=== PATIENT | female | born 1945 | race Caucasian/White ===

== ENCOUNTER 2020-01-30 10:29 | Outpatient (CLI) | payer MEDICARE, BC, SELFPAY ==
[2020-01-30 11:07] LABS: Basophils Percent Auto 0.5 % (0.2-1.2); Eosinophils Absolute Auto 0.1 K/mm3 (0-0.3); Eosinophils Percent Auto 1.4 % (0-4.4); Hematocrit 40.6 % (37.0-47.0); Hemoglobin 13.2 g/dL (12.0-15.0); Immature Granulocyte Absolute 0.02 K/mm3 (0.00-0.031); Immature Granulocyte Percent A 0.3 % (0-0.5); Lymphocytes Absolute Auto 1.02 K/mm3 (0.9-3.2); Mean Corpuscular HGB Conc 32.5 g/dl (32-36); Mean Corpuscular Hemoglobin 31.1 pg (26-34); Mean Corpuscular Volume 95.5 fl (80-100); Mean Platelet Volume 10.5 fl (7.4-10.4); Monocytes Absolute Auto 0.7 K/mm3 (0.1-0.6); Monocytes Percent Auto 9.2 % (2.6-8.5); Neutrophils Absolute Auto 5.9 K/mm3 (1.3-6.7); Neutrophils Percent Auto 75.6 % (45.5-73.1); Platelet Count Result 211 k/mm3 (150-375); Red Blood Count 4.25 M/mm3 (4.2-5.4); White Blood Count 7.8 K/mm3 (4.5-10.0)
[2020-01-30 11:28] LABS: Blood Urea Nitrogen 41 mg/dL (7-17); Carbon Dioxide 30 mmol/L (22-30); Chloride 95 mmol/L (98-107); Estimated Glomerular Filt Rate 40; Glucose 198 mg/dL (65-105); Potassium 4.5 mmol/L (3.4-5.0); Sodium 134 mmol/L (137-145)
[2020-01-30 11:33] LABS: NT Pro B Type Natriuretic Pept 63 PG/ML (5-100)
== END 2020-01-30 10:30 | disposition home or self-care (01) ==
PROVIDERS: PCP Family Medicine; Visit Provider Internal Medicine Cardiovascular Disease
DX: I25.118 Atherosclerotic heart disease of native coronary artery with other forms of angina pectoris (principal); I50.31 Acute diastolic (congestive) heart failure
CPT/HCPCS: 36415; 80048; 83880; 85025

== ENCOUNTER 2020-02-22 07:55 | Outpatient (CLI) | payer MEDICARE, BC, SELFPAY ==
[2020-02-22 08:46] LABS: Blood Urea Nitrogen 30 mg/dL (7-17); Calcium 8.6 mg/dL (8.4-10.2); Carbon Dioxide 37 mmol/L (22-30); Chloride 96 mmol/L (98-107); Estimated Glomerular Filt Rate 49; Glucose 134 mg/dL (65-105); Potassium 4.2 mmol/L (3.4-5.0); Sodium 137 mmol/L (137-145)
== END 2020-02-22 07:56 | disposition home or self-care (01) ==
LOC: ANHLAB 07:59
PROVIDERS: PCP Family Medicine; Visit Provider Nurse Practitioner Adult Health
DX: I50.32 Chronic diastolic (congestive) heart failure (principal)
CPT/HCPCS: 36415; 80048; 83735

== ENCOUNTER 2020-02-29 13:25 | Emergency (ER) | payer MEDICARE, BC, SELFPAY ==
[2020-02-29] VITALS (20 sets, daily range): BP systolic 115–169; BP diastolic 57–74; PULSE 58–70; RESP 15–27; TEMP 36.2; O2SAT 87–100
--- NOTE | ~2020-02-29 | XR_ITS ---
EXAMINATION: XR chest 1V portable EXAM DATE: 02/29/2020 14:01 INDICATION: Shortness of breath. TECHNIQUE: Portable AP frontal chest x-ray was obtained. Comparison is made to prior examination from 08/09/2019. FINDINGS: There is indistinct reticulation with a bibasal predominance which may indicate pulmonary e philip. The cardiomediastinal silhouette is prominent but magnified on this AP technique. Cardiac silho uette is stable in size compared to prior exam. Mild hyperinflation. No confluent consolidation, pneu mothorax or pleural effusion suspected. There is aortic arteriosclerosis. There are mild bony degener ative changes. IMPRESSION: 1. Indistinct basilar reticulation, possible mild pulmonary edema. Reviewed, dictated and finalized at location B.
--- NOTE | 2020-02-29 13:52 | ECG_ITS ---
Measurements Intervals [place] Rate: 61 P: 50 LA: 143 QRS: 9 QRSD: 94 T: 25 QT: 400 QTc: 404 Interpretive Statements SINUS RHYTHM BASELINE ARTIFACT- I, II, III, V5 NORMAL ECG Electronically Signed On 02-29-2020 15:45:05 CDT by Jaylan Becker D.O.
--- NOTE | 2020-02-29 14:03 | PC.NURSE ---
Called lab to add on PT INR PTT, CMP, Trop I baseline, BNP, CBC.
[2020-02-29 14:08] LABS: Basophils Percent Auto 0.4 % (0.2-1.2); Eosinophils Absolute Auto 0.2 K/mm3 (0-0.3); Eosinophils Percent Auto 3.5 % (0-4.4); Hematocrit 36.4 % (37.0-47.0); Hemoglobin 11.6 g/dL (12.0-15.0); Immature Granulocyte Absolute 0.03 K/mm3 (0.00-0.031); Immature Granulocyte Percent A 0.4 % (0-0.5); Lymphocytes Percent Auto 16.2 % (18.3-44.2); Mean Corpuscular HGB Conc 31.9 g/dl (32-36); Mean Corpuscular Hemoglobin 31.4 pg (26-34); Mean Corpuscular Volume 98.4 fl (80-100); Mean Platelet Volume 10.2 fl (7.4-10.4); Monocytes Absolute Auto 0.8 K/mm3 (0.1-0.6); Monocytes Percent Auto 11.2 % (2.6-8.5); Neutrophils Absolute Auto 4.7 K/mm3 (1.3-6.7); Neutrophils Percent Auto 68.3 % (45.5-73.1); Platelet Count Result 203 k/mm3 (150-375); Red Cell Distribution Width 14.1 % (11.5-14.5); White Blood Count 6.8 K/mm3 (4.5-10.0)
--- NOTE | 2020-02-29 14:16 | ED.SOB ---
HPI - SOB/Dyspnea General Chief Complaint: Shortness of Breath/Dyspnea Stated Complaint: low pulse oximetry Time Seen by Provider: 02/29/20 13:45 Source: patient and old records reviewed Mode of arrival: ambulatory Limitations: no limitations History of Present Illness HPI Narrative: Patient is a 74-year-old female who presents for shortness of breath with exertion over the last 3 days patient referred to emergency department for evaluation patient has history of COPD congestive heart failure normally wears 4 L of oxygen nasal cannula. Patient with history of swelling to the lower legs is taking Lasix for this per cardiology. Patient notes productive cough of clear phlegm which she states is a chronic finding denies any acute URI symptoms or sick contacts denies any chest pain. Patient presents per private vehicle in no distress. Symptoms worse with exertion Related Data Home Medications Medication Instructions Recorded Confirmed Aspirin Childrens 08/09/19 Ventolin HFA 08/09/19 Xarelto 08/09/19 amlodipine 5 mg PO DAILY 08/09/19 amlodipine 10 mg PO DAILY 08/09/19 apixaban [Eliquis] 5 mg PO BID 08/09/19 btgwsrnkari-egbrpoeyt-hyehhmwm 1 inh INHALATION Q24H 08/09/19 [Trelegy Ellipta] furosemide 40 mg PO BID 08/09/19 losartan 25 mg PO DAILY 08/09/19 losartan 50 mg PO DAILY 08/09/19 metoprolol tartrate 25 mg PO DAILY 08/09/19 nitroglycerin 0.4 mg SUBLINGUAL Q5-15M PRN 08/09/19 pantoprazole 40 mg PO QAM 08/09/19 potassium chloride 10 meq PO BID 08/09/19 potassium chloride [Klor-Con] 20 meq PO DAILY 08/09/19 pravastatin 40 mg PO DAILY 08/09/19 ropinirole 1 mg PO TID 08/09/19 tramadol mg 08/09/19 valacyclovir 1,000 mg PO DAILY 08/09/19 vortioxetine [Trintellix] 20 mg PO DAILY 08/09/19 zolpidem 5 mg PO HS PRN 08/09/19 Allergies Allergy/AdvReac Type Severity Reaction Status Date / Time No Known Allergies Allergy Verified 08/09/19 14:45 Review of Systems Review of Systems: All systems reviewed & are unremarkable except as noted in HPI and below PMFSH Past Medical History Medical History Afib Anxiety Arthritis CAD (coronary artery disease) COPD (chronic obstructive pulmonary disease) Depression Emphysema of lung HLD (hyperlipidemia) HTN (hypertension) Peripheral neuropathy Surgical History Surgical History H/O heart artery stent H/O skin graft H/O tubal ligation History of cardiac catheterization Social History Social History Smoking status: Former smoker Exam Narrative: Exam Narrative: GENERAL: Well-appearing, well-nourished, and in no acute distress. HEAD: Normocephalic, atraumatic. EYES: PERRLA and EOMI. ENT: Nares clear, no rhinorrhea or epistaxis. Mucous membranes moist. Oropharynx without tonsillar hypertrophy exudate or other lesions. NECK: Supple. No adenopathy or masses. No carotid bruits or JVD CHEST: Diminished on auscultation. No respiratory distress. Fine expiratory wheezes with crackles in the bilateral lower lung bases HEART: Regular rate and rhythm. No murmur heard. Normal peripheral pulses. ABDOMEN: Soft, nontender, nondistended EXTREMITIES: Normal range of motion. 1+ edema to the lower extremities SKIN: Warm, dry, no rash. NEURO: No focal deficits. Alert and oriented x3. PSYCH: Normal mood and affect. Course Course Emergency Course: Patient in the room at this time in no distress aware of case findings treatment plan and diagnosis felt appropriate for outpatient reevaluation Vital Signs Vital signs: Vital Signs Temperature 97.2 F L 02/29/20 13:33 Pulse Rate 62 02/29/20 13:33 Respiratory Rate 20 02/29/20 13:33 Blood Pressure 169/74 H 02/29/20 13:33 Pulse Oximetry 88 L 02/29/20 13:33 Temperature 97.2 F L 02/29/20 13:33 Pulse Rate 60 02/29/20 14:31 Respiratory R
[2020-02-29 14:20] LABS: INR 1.1; Prothrombin Time 14.2 Seconds (11.1-14.7)
[2020-02-29 14:21] LABS: Alanine Aminotransferase 21 U/L (4-35); Albumin Level 4.2 g/dL (3.5-5.1); Alkaline Phosphatase 75 U/L (38-126); Aspartate Amino Transferase 26 U/L (14-36); Bilirubin,Total 0.3 mg/dL (0.2-1.3); Blood Urea Nitrogen 38 mg/dL (7-17); Calcium 8.8 mg/dL (8.4-10.2); Carbon Dioxide 35 mmol/L (22-30); Chloride 97 mmol/L (98-107); Estimated CRCL calculation 40 ml/min; Estimated Glomerular Filt Rate 40; Glucose 117 mg/dL (65-105); Partial Thromboplastin Time 33.2 SECONDS (22.3-36.8); Potassium 4.6 mmol/L (3.4-5.0); Sodium 136 mmol/L (137-145)
[2020-02-29] MEDS: IPRATROPIUM BR 0.02% INH SOLN 0.5 MG/2.5 ML VIAL INHALATION (14:26)
[2020-02-29] MEDS: ALBUTEROL SULFATE NEB 2.5 MG/0.5 ML INH 5 MG INHALATION (14:27)
[2020-02-29] MEDS: methylPREDNISolone SOD SUCC 125 MG VIAL IV PUSH (14:27)
--- NOTE | 2020-02-29 14:29 | PC.NURSE ---
Attempted to obtain blood culture 1st set but was unsuccessful. Called phlebotomy at this time to attempt.
[2020-02-29 14:33] LABS: Alveolar/Arterial O2 Gradient 85.5 mmHg; Base Excess ABG 4.6 mEq/l (+/-2.0); Carboxyhemoglobin 0.7 % THb (0-2.0); Fractional Inspired Oxygen 36 %; HCO3 ABG 30.6 mEq/l (22.0-26.0); Methemoglobin ABG 0.3 %THb (0-1.5); Oxygen Content ABG 16.5 %vol (16.0-22.0); PCO2 ABG 51.6 mmHg (35.0-45.0); PO2 ABG 111.3 mmHg (80.0-100.0); PO2 FiO2 Ratio Arterial Blood 3.09 %; Total Hemoglobin 12.1 g/dL (12.0-18.0); pH ABG 7.391 (7.350-7.450)
[2020-02-29 14:33] LABS: NT Pro B Type Natriuretic Pept 144 PG/ML (5-100); Troponin I < 0.012 ng/mL (0.000-0.034)
[2020-02-29 14:34] LABS: Device NASAL CANNULA; Modified Allen's Test Pass; Site Drawn RIGHT RADIAL
--- NOTE | 2020-02-29 14:46 | PC.NURSE ---
Called lab to add on d dimer.
[2020-02-29 15:02] LABS: D Dimer 0.32 ug/mL (<0.48)
== END 2020-02-29 16:49 | disposition home or self-care (01) ==
PROVIDERS: Emergency Medicine Emergency Medical Services; Emergency Provider Emergency Medicine; PCP Family Medicine
DX: J44.1 Chronic obstructive pulmonary disease with (acute) exacerbation (principal); I48.91 Unspecified atrial fibrillation; F41.9 Anxiety disorder, unspecified; I25.10 Atherosclerotic heart disease of native coronary artery without angina pectoris; F32.9 Major depressive disorder, single episode, unspecified; E78.5 Hyperlipidemia, unspecified; I10 Essential (primary) hypertension; G62.9 Polyneuropathy, unspecified; Z95.5 Presence of coronary angioplasty implant and graft; Z87.891 Personal history of nicotine dependence; Z79.01 Long term (current) use of anticoagulants; Z79.82 Long term (current) use of aspirin; R91.8 Other nonspecific abnormal finding of lung field
CPT/HCPCS: 36415; 36600; 71045; 80053; 82375; 82805; 83050; 83880; 84484; 85025; 85380; 85610; 85730; 87040; 93005; 94640; 96374; 99284; J2930

== ENCOUNTER 2020-04-19 12:34 | Inpatient (IN) | payer MEDICARE, BC, SELFPAY ==
[2020-04-19] VITALS (11 sets, daily range): BP systolic 100–158; BP diastolic 54–74; PULSE 57–73; RESP 18–22; TEMP 36.3–36.6; O2SAT 70–97; BMI 44.2
--- NOTE | ~2020-04-19 | US_ITS ---
EXAMINATION: US venous doppler [facility] DATE: 04/20/2020 10:24 INDICATION: Lower limb edema. TECHNIQUE: Grayscale ultrasound images without and with compression and Doppler ultrasound images of the bilateral lower extremity veins were obtained. COMPARISON: None. FINDINGS: The visualized portions of right common femoral vein, profunda (deep) femoral vein, femoral vein, pop liteal vein, peroneal veins, posterior tibial veins, and greater saphenous vein outflow are patent. The visualized portions of left common femoral vein, profunda femoral vein, femoral vein, popliteal v ein, peroneal veins, posterior tibial veins, and greater saphenous vein outflow are patent. IMPRESSION: 1. No deep venous thrombosis. Reviewed, dictated and finalized at location A.
--- NOTE | ~2020-04-19 | XR_ITS ---
EXAMINATION: XR chest 1V portable DATE: 04/19/2020 13:28 INDICATION: Shortness of breath. TECHNIQUE: A single frontal view of the chest was obtained. COMPARISON: Chest single view 02/29/2020, CT abdomen and pelvis 10/09/2017 FINDINGS: The chest demonstrates clear lungs without pneumonia, pleural effusion, or pneumothorax. Th e heart size is normal. IMPRESSION: 1. No acute cardiopulmonary disease. Reviewed, dictated and finalized at location B.
--- NOTE | 2020-04-19 13:01 | ECG_ITS ---
Measurements Intervals [place] Rate: 57 P: 29 [place]: 146 QRS: 3 QRSD: 92 T: 5 QT: 447 QTc: 436 Interpretive Statements SINUS BRADYCARDIA BORDERLINE T WAVE ABNORMALITY- INFERIOR LEADS BASELINE ARTIFACT- I, II, III, AVR, AVL, AVF, V4 BORDERLINE ECG Electronically Signed On 04-19-2020 14:27:18 CDT by Jaylan Becker D.O.
[2020-04-19 13:31] LABS: Basophils Percent Auto 0.5 % (0.2-1.2); Eosinophils Absolute Auto 0.3 K/mm3 (0-0.3); Eosinophils Percent Auto 3.7 % (0-4.4); Hematocrit 30.4 % (37.0-47.0); Hemoglobin 9.5 g/dL (12.0-15.0); Immature Granulocyte Absolute 0.02 K/mm3 (0.00-0.031); Immature Granulocyte Percent A 0.3 % (0-0.5); Lymphocytes Absolute Auto 1.11 K/mm3 (0.9-3.2); Lymphocytes Percent Auto 14.7 % (18.3-44.2); Mean Corpuscular HGB Conc 31.3 g/dl (32-36); Mean Corpuscular Hemoglobin 29.6 pg (26-34); Mean Corpuscular Volume 94.7 fl (80-100); Monocytes Absolute Auto 0.9 K/mm3 (0.1-0.6); Monocytes Percent Auto 11.5 % (2.6-8.5); Neutrophils Absolute Auto 5.2 K/mm3 (1.3-6.7); Neutrophils Percent Auto 69.3 % (45.5-73.1); Platelet Count Result 215 k/mm3 (150-375); Red Blood Count 3.21 M/mm3 (4.2-5.4); Red Cell Distribution Width 14.5 % (11.5-14.5); White Blood Count 7.6 K/mm3 (4.5-10.0)
[2020-04-19 13:41] LABS: INR 1.3; Prothrombin Time 15.8 Seconds (11.1-14.7)
[2020-04-19 13:42] LABS: Partial Thromboplastin Time 32.6 SECONDS (22.3-36.8)
[2020-04-19 13:45] LABS: Anion Gap 7 mmol/L (8-16); Blood Urea Nitrogen 26 mg/dL (7-17); Calcium 8.9 mg/dL (8.4-10.2); Carbon Dioxide 32 mmol/L (22-30); Chloride 96 mmol/L (98-107); Estimated CRCL calculation 41 ml/min; Estimated Glomerular Filt Rate 37; Glucose 129 mg/dL (65-105); Potassium 3.8 mmol/L (3.4-5.0); Sodium 135 mmol/L (137-145)
[2020-04-19 13:57] LABS: NT Pro B Type Natriuretic Pept 286 PG/ML (5-100); Troponin I < 0.012 ng/mL (0.000-0.034)
--- NOTE | 2020-04-19 14:24 | ED.SOB ---
HPI - SOB/Dyspnea General Chief Complaint: Shortness of Breath/Dyspnea Stated Complaint: SOB, COVID Symptoms Time Seen by Provider: 04/19/20 12:43 History of Present Illness HPI Narrative: Patient is a 74-year-old female who presents to the ER with shortness of breath and cough. Patient is oxygen dependent COPD or who typically wears 3 L nasal cannula. She has had to turn her oxygen up to 5 L to obtain a normal saturation not in the 80s. She reports new productive cough for the last 2 days. No known sick contacts and thinks she is having a flare of her COPD. No chest pain or chest pressure. She denies any fevers or chills. No COVID exposures. Patient reports increased lower extremity swelling over the last 4 days. Takes 160 mg of Lasix daily and it is not improving it. No orthopnea. Sleeps with her CPAP. Related Data Home Medications Medication Instructions Recorded Confirmed Xarelto 15 mg PO QPM 08/09/19 04/19/20 amlodipine 5 mg PO DAILY 08/09/19 04/19/20 furosemide 80 mg PO BID 08/09/19 04/19/20 losartan 50 mg PO DAILY 08/09/19 04/19/20 metoprolol tartrate 50 mg PO QAM 08/09/19 04/19/20 nitroglycerin 0.4 mg SUBLINGUAL Q5-15M PRN 08/09/19 04/19/20 pantoprazole 40 mg PO QAM 08/09/19 04/19/20 potassium chloride 20 meq PO BID 08/09/19 04/19/20 pravastatin 40 mg PO DAILY 08/09/19 04/19/20 ropinirole 0.5 mg PO BID 08/09/19 04/19/20 tramadol 50 mg PO Q6H PRN 08/09/19 04/19/20 vortioxetine [Trintellix] 10 mg PO DAILY 08/09/19 04/19/20 albuterol sulfate 2 puff INHALATION Q6H PRN 04/19/20 04/19/20 aspirin 81 mg PO DAILY 04/19/20 04/19/20 qfkbflwossx-gxfyisacd-wrwvqcin 1 inh INHALATION DAILY 04/19/20 04/19/20 [Trelegy Ellipta] guaifenesin 600 mg PO Q12H 04/19/20 04/19/20 magnesium oxide 800 mg PO DAILY 04/19/20 04/19/20 metoprolol tartrate 75 mg PO QPM 04/19/20 04/19/20 Allergies Allergy/AdvReac Type Severity Reaction Status Date / Time No Known Allergies Allergy Verified 08/09/19 14:45 Review of Systems Review of Systems: All systems reviewed & are unremarkable except as noted in HPI and below Constitutional: Constitutional: Denies chills, Denies fever(s) and Denies weakness ENT: Denies nasal congestion and Denies sore throat Cardiovascular: Cardiovascular: Denies chest pain and Denies rapid heart rate Respiratory: Respiratory: Reports cough, Reports dyspnea and Reports wheezing Gastrointestinal: Gastrointestinal: Denies abdominal pain, Denies nausea and Denies vomiting PMF Past Medical History Medical History (Updated 04/19/20 @ 23:20 by Richie Sanders MD) Afib controlled with beta-mack Anxiety Arthritis CAD (coronary artery disease) One cardiac stent to the RCA COPD (chronic obstructive pulmonary disease) Depression Emphysema of lung HLD (hyperlipidemia) HTN (hypertension) Obstructive sleep apnea missed using her CPAP the last couple days due to nasal stuffiness Peripheral neuropathy Restless leg syndrome Surgical History Surgical History (Updated 04/19/20 @ 20:55 by Carmen Boss NP) H/O heart artery stent 1 stent to the RCA Two thousand eleven H/O skin graft right elbow and right buttocks and 2008. Donor site right thigh. H/O tubal ligation History of cardiac catheterization Family History Family History (Updated 04/19/20 @ 20:56 by Carmen Boss NP) Mother Cerebrovascular accident Hypertension Sibling Cerebrovascular accident Acute myocardial infarction Suicide brother Daughter Diabetes mellitus Father Diabetes mellitus Heart disease Social History Social History (Updated 04/19/20 @ 21:02 by Carmen Boss NP) Social History: the patient is and she uses smoke she quit February 2015 occasionally drinks wine. She has 3 children. 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 Her daughter Odalys villavicencio is her durable power collar shaper operator for healthcare. The patient stated she i
[2020-04-19] MEDS: IPRATROPIUM BR 0.02% INH SOLN 0.5 MG/2.5 ML VIAL INHALATION (14:26)
[2020-04-19] MEDS: ALBUTEROL SULFATE NEB 2.5 MG/0.5 ML INH 5 MG INHALATION (14:26)
[2020-04-19 14:35] LABS: Alveolar/Arterial O2 Gradient 128.4 mmHg; Base Excess ABG 6.5 mEq/l (+/-2.0); Carboxyhemoglobin 0.4 % THb (0-2.0); Fractional Inspired Oxygen 36 %; HCO3 ABG 31.1 mEq/l (22.0-26.0); Methemoglobin ABG 0.1 %THb (0-1.5); Oxygen Content ABG 13.2 %vol (16.0-22.0); Oxygen Saturation ABG 95.8 % (95.0-100.0); PCO2 ABG 44.7 mmHg (35.0-45.0); PO2 ABG 76.4 mmHg (80.0-100.0); PO2 FiO2 Ratio Arterial Blood 2.12 %; Reduced Hemoglobin 5.5 %THb (0-5.0); Total Hemoglobin 9.9 g/dL (12.0-18.0)
[2020-04-19 14:38] LABS: Device NASAL CANNULA; Modified Allen's Test Pass; Site Drawn LEFT RADIAL
[2020-04-19] MEDS: methylPREDNISolone SOD SUCC 125 MG VIAL IV PUSH (15:09)
--- NOTE | 2020-04-19 16:49 | ADMGEN ---
This patient, Bebe Lyons, was admitted to 2 Medical Room 254-01. Patient/family oriented to hospital policies and general routines including ID bracelet, bed and alarms, visiting hours, pain management, procedures, bathroom and other care routines, personal items, smoking policy, room service/diet, and visiting hours. Valuables list has been completed. Information on how to activate the Rapid Response Team has been discussed. Patient/Family are encouraged to report perceived risks to care and to ask questions if they do not understand what they are told or what they should do.
--- NOTE | 2020-04-19 20:45 | PM.IMHP ---
H&P: HPI History of Present Illness Date/Time: 04/19/20 20:45 Chief complaint: COPD exacerbation Narrative: Bebe Lyons is a 74 year old female Who has a history of COPD and chronic hypoxia. She sees Iris Garg nurse practitioner at the electrical engineering technologist office. The patient is chronically on 4 L per nasal cannula at home. The patient has been falling asleep often and she has been on isolation. She stated since August she has been staying at home. Her daughter and granddaughter live with her. Her granddaughter has been going to graduation parties but does not have any symptoms of covid 19. Her granddaughter brought brought her some groceries 1 night but other than that she has not had any exposure to any by it could possibly have COVID. Her daughter is a nurse but has not tested positive for COVID. Chest x-ray was read as nothing acute. I reviewed her last 3 chest x-rays they all appear to be the same. The patient denies having any congestive heart failure and has chronic lymphedema. Her legs are at least 3 to 4+ pitting edema. The patient has been more short of breath. She has been to the emergency room here a couple times and was started on Levaquin and p.o. steroids. The patient recently was increased on her oxygen from 3 L to 4 L. the patient has been having a cough it was yellow in now green. She denies any fever or chills. No nausea vomiting or diarrhea. No change in taste or smell. At this time we did not check her for COVID as she has no fever or any indications of covid 19 at this time. However the patient does desat to the 60s when she gets up and walks. At this time she stabbing in the 90s. Her arterial blood gases pH 7.460. PO2 was 76.4. Bicarb 31.1. The patient was started on steroids in the emergency room and given a neb treatment. Patient is on high doses of Lasix and sees Dr. Martinez and had an echo back in August she stated. She denies having any congestive heart failure but is on high doses of Lasix. She has a history of atrial fibrillation but is controlled with a beta-mack. She has been in sinus rhythm with sinus bradycardia. I have spent at least 1 hour with the patient. Her creatinine is 1.4 has been 1.1 and 1.3 in the past. I have discussed the case with my collaborative who agree that we would get a few more labs and not test her for COVID at this time If labscomes back negative. She is afebrile. the patient stated that he typically Mucinex helps her but she has not been taking it because she is getting ready to have a pulmonary function test.Her date of service is 04/19/2020. Review of Systems Review of Systems: All systems reviewed & are unremarkable except as noted in HPI and below Constitutional: Constitutional: Reports as per HPI and Reports no additional constitutional complaints Eyes: Eyes: Reports as per HPI and Reports no additional eye complaints ENT: Reports system reviewed and no additional complaints, except as documented and Reports Normal hearing present Cardiovascular: Cardiovascular: Reports no additional cardiovascular complaints Respiratory: Respiratory: Reports no additional respiratory complaints and Reports no additional respiratory complaints Gastrointestinal: Gastrointestinal: Reports as per HPI and Reports no additional gastrointestinal complaints Musculoskeletal: Musculoskeletal: Reports no additional musculoskeletal complaints Integumentary/Breasts: Skin/Breast: Reports system reviewed and no additional complaints, except as docu and Reports as per HPI Neurologic: Reports system reviewed and no additional complaints, except as documented, Reports as per HPI and Reports Normal hearing present Psychiatric: Psychiatric: Reports no additional psychiatric complaints and Reports as per HPI Endocrine: Endocrine: Reports no additional endocrine complaints Hematologic/Lymphatic: Hematologic/Lymphatic: Reports no additional hematologic/lymphatic complaints Allerg
[2020-04-19] MEDS: methylPREDNISolone SOD SUCC 125 MG VIAL 60 MG IV PUSH (20:51)
[2020-04-19 21:49] LABS: Albumin Level 4.1 g/dL (3.5-5.1); Alkaline Phosphatase 81 U/L (38-126); Anion Gap 12 mmol/L (8-16); Aspartate Amino Transferase 28 U/L (14-36); Bilirubin,Total 0.2 mg/dL (0.2-1.3); Blood Urea Nitrogen 24 mg/dL (7-17); CRP 0.6 mg/dL (<1.0); Calcium 8.7 mg/dL (8.4-10.2); Carbon Dioxide 27 mmol/L (22-30); Chloride 96 mmol/L (98-107); Estimated CRCL calculation 48 ml/min; Estimated Glomerular Filt Rate 49; Glucose 311 mg/dL (65-105); Potassium 4.1 mmol/L (3.4-5.0); Sodium 135 mmol/L (137-145)
[2020-04-19 21:55] LABS: Alanine Aminotransferase 23 U/L (4-35)
[2020-04-19] MEDS: levoFLOXacin 250 MG/D5W 50 ML 250 MG/50 ML BAG 50 MG IVPB (21:57)
[2020-04-19] MEDS: rOPINIRole HCL 0.5 MG TABLET PO ×2 (21:58→23:48)
[2020-04-19] MEDS: traMADol HCL 50 MG TABLET PO (21:58)
[2020-04-19] MEDS: guaiFENesin 12 HR 600 MG TABCR PO (21:58)
[2020-04-19 22:51] LABS: Ferritin 8.64 ng/mL (11.1-264)
[2020-04-20] VITALS (12 sets, daily range): BP systolic 136–155; BP diastolic 61–70; PULSE 65–79; RESP 18–28; TEMP 36.1–36.4; O2SAT 89–94
--- NOTE | 2020-04-20 | ECHO_ITS ---
Patient Info Name: Bebe Lyons Age: 74 years : 1945 Gender: Female Ht: 62 in Wt: 242 lbs BSA: 2.26 m2 HR: 78 bpm BP: 138 / 68 mmHg Heart Rhythm: Sinus Rhythm Technical Quality: Good Exam Date: 04/20/2020 9:21 AM Exam Location: [facility] Pulmonary Exam Room: [address] [place] [address] Patient Status: Inpatient Admit Date: 04/19/2020 Staff Ordering Physician: Carmen Boss NP Bolt Cutter: Nanci Lopez RDCS Attending Provider: Jacqueline Gonzalez PA-C Referring Physician: Karyn DUQUE; Exam Type: CA echo doppler color flow Study Info Indications - AMINA SOB COUGH COPD Complete two-dimensional, color flow and Doppler transthoracic echocardiogram is performed. Summary 1. There is moderate concentric increased left ventricular wall thickness. 2. Left ventricular systolic function is hyperdynamic, estimated at >70%. 3. Left atrial chamber dimension is mildly enlarged. 4. No valvular abnormalities. Left Ventricle Left ventricular chamber dimension is normal. Left ventricular systolic function is hyperdynamic, estimated at >70%. There is moderate concentric increased left ventricular wall thickness. The left ventricular diastolic function is grade I diastolic dysfunction. Right Ventricle Right ventricular chamber dimension is normal. Left Atria Left atrial chamber dimension is mildly enlarged. Right Atria Right atrial chamber dimension is normal. Aortic Valve The aortic valve is normal. Pulmonic Valve The pulmonic valve is not well visualized. Mitral Valve The mitral valve has normal leaflets. Tricuspid Valve The tricuspid valve leaflets are normal. Pericardium/Pleural The pericardium appears normal. Aorta The aortic root size at the sinus of Valsalva is normal. Left Ventricular Outflow Tract Name Value Normal LVOT 2D LVOT Diameter 2.0 cm LVOT Doppler LVOT Peak Gradient 11 mmHg LVOT Mean Gradient 6 mmHg LVOT VTI 35 cm LVOT VTI/AV VTI Ratio 0.8 LVOT Stroke Volume 106 ml LVOT CO 20.2 l/min LVOT CI 8.9 l/min/m2 Pulmonic Valve Name Value Normal PV Doppler PV Peak Gradient 7 mmHg Mitral Valve Name Value Normal MV Doppler MV Decel [place] 544 cm/s2 MV PHT 64 ms MV Area (PHT) 3.4 cm2 4.0-5.0 MV Diastolic Function
[2020-04-20] MEDS: rOPINIRole HCL 1 MG TABLET PO ×3 (05:46→20:42)
[2020-04-20 06:12] LABS: Alanine Aminotransferase 19 U/L (4-35); Alkaline Phosphatase 70 U/L (38-126); Anion Gap 9 mmol/L (8-16); Aspartate Amino Transferase 23 U/L (14-36); Bilirubin,Total 0.5 mg/dL (0.2-1.3); Blood Urea Nitrogen 23 mg/dL (7-17); Calcium 8.7 mg/dL (8.4-10.2); Carbon Dioxide 28 mmol/L (22-30); Chloride 97 mmol/L (98-107); Estimated CRCL calculation 58 ml/min; Estimated Glomerular Filt Rate > 60; Glucose 226 mg/dL (65-105); Potassium 4.4 mmol/L (3.4-5.0); Sodium 134 mmol/L (137-145)
[2020-04-20 06:20] LABS: Hematocrit 29.1 % (37.0-47.0); Immature Granulocyte Absolute 0.04 K/mm3 (0.00-0.031); Immature Granulocyte Percent A 0.6 % (0-0.5); Lymphocytes Absolute Auto 0.42 K/mm3 (0.9-3.2); Lymphocytes Percent Auto 6.4 % (18.3-44.2); Mean Corpuscular HGB Conc 30.9 g/dl (32-36); Mean Corpuscular Hemoglobin 29.2 pg (26-34); Mean Corpuscular Volume 94.5 fl (80-100); Mean Platelet Volume 10.8 fl (7.4-10.4); Monocytes Absolute Auto 0.2 K/mm3 (0.1-0.6); Monocytes Percent Auto 2.6 % (2.6-8.5); Neutrophils Absolute Auto 5.9 K/mm3 (1.3-6.7); Neutrophils Percent Auto 90.4 % (45.5-73.1); Platelet Count Result 216 k/mm3 (150-375); Red Blood Count 3.08 M/mm3 (4.2-5.4); Red Cell Distribution Width 14.4 % (11.5-14.5); White Blood Count 6.6 K/mm3 (4.5-10.0)
[2020-04-20 07:14] LABS: Thyroid Stimulating Hormone Reflex 0.733 uIU/mL (0.465-4.68)
[2020-04-20] MEDS: PANTOPRAZOLE 40 MG TABLET PO (10:35)
[2020-04-20] MEDS: ASPIRIN 81 MG ENTERIC TABLET PO (10:35)
[2020-04-20] MEDS: FUROSEMIDE 40 MG TABLET 80 MG PO ×2 (10:35→18:26)
[2020-04-20] MEDS: guaiFENesin 12 HR 600 MG TABCR PO ×2 (10:35→20:42)
[2020-04-20] MEDS: MAGNESIUM OXIDE 400 MG TABLET 800 MG PO (10:35)
[2020-04-20] MEDS: PRAVASTATIN SODIUM 20 MG TABLET 40 MG PO (10:35)
[2020-04-20] MEDS: LOSARTAN POTASSIUM 50 MG TABLET PO (10:36)
[2020-04-20] MEDS: POTASSIUM CHLORIDE 10 MEQ TABLET.ER 20 MEQ PO ×2 (10:36→18:26)
[2020-04-20] MEDS: METOPROLOL TARTRATE 50 MG TAB PO (10:36)
[2020-04-20] MEDS: methylPREDNISolone SOD SUCC 125 MG VIAL 60 MG IV PUSH ×4 (10:37→20:42)
[2020-04-20] MEDS: amLODIPine BESYLATE 5 MG TABLET PO (10:37)
--- NOTE | 2020-04-20 13:54 | PM.IMPN ---
Progress Note: A&P Assessment and Plan (1) COPD (chronic obstructive pulmonary disease): Code(s): J44.9 - Chronic obstructive pulmonary disease, unspecified Status: Chronic Assessment and Plan: Seems to be quite advanced. She has been established with a learning analyst at [place] and recently was scheduled to undergo pulmonary function testing, however she became too short of breath and proceeded to the emergency department instead of attending her appointment. She is on chronic 4 L O2 per nasal cannula at home. She is maintaining adequate oxygenation on 4 L. She is short breath with minimal activity including rotating in bed, walking to the bathroom, or walking up 2 steps. Consult has been placed to pulmonology and recommendations are appreciated. Continue albuterol and ipratropium. Patient is on trelegy at home, however this is non formulary. Continue IV Solu-Medrol, Levaquin as patient is reporting change in sputum color and has had green sputum production the past week, and Mucinex. Supplemental O2 with goal saturation 90% or above. Patient and daughter request hospice consultation given severity of illness. Referral has been placed via care coordination. (2) Obstructive sleep apnea: Code(s): G47.33 - Obstructive sleep apnea (adult) (pediatric) Status: Chronic Assessment and Plan: Likely contributing to her overall poor respiratory status. Continue CPAP titrated to home settings (3) HTN (hypertension): Qualifiers: Hypertension type: essential hypertension Qualified Code(s): I10 - Essential (primary) hypertension Code(s): I10 - Essential (primary) hypertension Status: Chronic Assessment and Plan: Blood pressures have been well controlled today. Continue metoprolol and losartan. (4) Afib: Code(s): I48.91 - Unspecified atrial fibrillation Status: Chronic Assessment and Plan: Rate is controlled. She is established with Dr. Martinez. Continue metoprolol and Xarelto (5) Peripheral edema: Code(s): R60.9 - Edema, unspecified Status: Acute Assessment and Plan: She has 1+ pitting pedal edema that she states is chronic. She has been compliant with her Lasix. She had attempted to use Arturo hose before but was unable to tolerate. She does not have a history of CHF and her BNP was very mildly elevated, not enough to suggest a CHF exacerbation. Venous Doppler performed to rule out DVT was negative. Echo performed today showed EF greater than 70% and no evidence of diastolic dysfunction. Continue home dose of Lasix. She is on a rather large dose of 80 mg b.i.d. Will monitor renal function and volume status. Will apply Gino wraps to lower extremities for compression. Subjective Date/time seen: 04/20/20 13:54 Interval history: Date of service: 04/20/2020 She feels very short of breath today. She says that simply turning in bed causes her to become very tired and short of breath. At baseline, she is unable to get up and walk to the bathroom or climb 1-2 stairs without needing to stop to catch her breath. She also complains of increased edema in her lower extremities. She complains of chronic cough that is now productive of green sputum. She denies nausea, vomiting, fever, chills, abdominal pain, dizziness, or lightheadedness. Her appetite has been good. Without prompting, she and her daughter both expressed interested in discussing Hospice care as patient states she does not wish to be hospitalized again and she does not feel that her shortness of breath will improve. Review of Systems Review of Systems: Narrative: A 12 point review of systems was reviewed with pertinent positives and negatives as per HPI. Exam Narrative: Exam Narrative: Ms. Lyons is a well-nourished 74 year old female who is lying semi-recumbent in bed. She appears comfortable and is in NARD. HR 73, BP 138/68, RR
--- NOTE | 2020-04-20 18:09 | PM.CNPUL ---
History of Present Illness History of Present Illness Consult date: 04/20/20 Requesting physician: Jacqueline Gonzalez PA-C Reason for consult: COPD Chief complaint: COPD exacerbation Narrative: NEW: thank you for the consult; Daughter Jaci is here Dopplers negative for DVT, Echo 1. There is moderate concentric increased left ventricular wall thickness. 2. Left ventricular systolic function is hyperdynamic, estimated at >70%. 3. Left atrial chamber dimension is mildly enlarged. 4. No valvular abnormalities. RVSP increased at 54 mmHg PENDING SALE TO [facility] Past Medical History Medical History (Updated 04/20/20 @ 18:01 by Jacqueline Gonzalez PA-C) Afib controlled with beta-mack Anxiety Arthritis CAD (coronary artery disease) One cardiac stent to the RCA COPD (chronic obstructive pulmonary disease) Depression Emphysema of lung HLD (hyperlipidemia) HTN (hypertension) Obstructive sleep apnea missed using her CPAP the last couple days due to nasal stuffiness Peripheral neuropathy Restless leg syndrome Surgical History Surgical History (Updated 04/19/20 @ 20:55 by Carmen Boss NP) H/O heart artery stent 1 stent to the RCA Two thousand eleven H/O skin graft right elbow and right buttocks and 2007. Donor site right thigh. H/O tubal ligation History of cardiac catheterization Family History Family History (Updated 04/19/20 @ 20:56 by Carmen Boss NP) Mother Cerebrovascular accident Hypertension Sibling Cerebrovascular accident Acute myocardial infarction Suicide brother Daughter Diabetes mellitus Father Diabetes mellitus Heart disease Social History Social History (Updated 04/19/20 @ 21:02 by Carmen Boss NP) Social History: the patient is and she uses smoke she quit February 2015 occasionally drinks wine. She has 3 children. 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 Her daughter Odalys villavicencio is her durable power district attorney for healthcare. The patient stated she is a DNI. Smoking packs per day: 1 Smoking cigarettes per day: 20.0 Years smoked: 30 Smoking pack-years: 30.00 Smoking status: Former smoker Tobacco type: cigarettes Alcohol intake: never Substance use: never Spiritual care concerns: No Meds Home Medications and Allergies Home Medications Medication Instructions Recorded Confirmed Type Xarelto 15 mg PO QPM 08/09/19 04/19/20 History amlodipine 5 mg PO DAILY 08/09/19 04/19/20 History furosemide 80 mg PO BID 08/09/19 04/19/20 History losartan 50 mg PO DAILY 08/09/19 04/19/20 History metoprolol tartrate 50 mg PO QAM 08/09/19 04/19/20 History nitroglycerin 0.4 mg SUBLINGUAL Q5-15M PRN 08/09/19 04/19/20 History pantoprazole 40 mg PO QAM 08/09/19 04/19/20 History potassium chloride 20 meq PO BID 08/09/19 04/19/20 History pravastatin 40 mg PO DAILY 08/09/19 04/19/20 History ropinirole 0.5 mg PO BID 08/09/19 04/19/20 History tramadol 50 mg PO Q6H PRN 08/09/19 04/19/20 History vortioxetine [Trintellix] 10 mg PO DAILY 08/09/19 04/19/20 History albuterol sulfate 2 puff INHALATION Q6H PRN 04/19/20 04/19/20 History aspirin 81 mg PO DAILY 04/19/20 04/19/20 History gkimtrldkso-zqpmchmyz-fobufpyx 1 inh INHALATION DAILY 04/19/20 04/19/20 History [Trelegy Ellipta] guaifenesin 600 mg PO Q12H 04/19/20 04/19/20 History magnesium oxide 800 mg PO DAILY 04/19/20 04/19/20 History metoprolol tartrate 75 mg PO QPM 04/19/20 04/19/20 History Allergies Allergy/AdvReac Type Severity Reaction Status Date / Time No Known Allergies Allergy Verified 08/09/19 14:45 Vital Signs Vital Signs - 24 hr 04/19/20 19:19 04/19/20 20:00 04/19/20 22:00 Temperature 36.6 C Pulse Rate 73 71 Respiratory Rate 20 Blood Pressure 140/67 Pulse Oximetry 70 L 93 04/20/20 00:00 04/20/20 00:35 04/20/20 05:05 Temperature Pulse Rate 79 79 75 Respiratory Rate 23 H 24 H Blood Pressu
[2020-04-20] MEDS: METOPROLOL TARTRATE 25 MG TABLET 75 MG PO (18:27)
[2020-04-20] MEDS: RIVAROXABAN 15 MG TABLET PO (18:27)
[2020-04-20] MEDS: traMADol HCL 50 MG TABLET PO (18:40)
[2020-04-20] MEDS: ALBUTEROL SULFATE (*SP) AEROSOL 1 PUFF 2 PUFF INHALATION (20:07)
[2020-04-20] MEDS: levoFLOXacin 250 MG/D5W 50 ML 250 MG/50 ML BAG 50 MG IVPB (20:42)
[2020-04-21] VITALS (9 sets, daily range): BP systolic 131–190; BP diastolic 69–96; PULSE 55–69; RESP 20–24; TEMP 36–36.3; O2SAT 92–97
[2020-04-21] MEDS: traMADol HCL 50 MG TABLET PO ×2 (04:07→18:01)
[2020-04-21] MEDS: rOPINIRole HCL 1 MG TABLET PO ×3 (05:00→21:21)
[2020-04-21 05:43] LABS: Hematocrit 28.5 % (37.0-47.0); Hemoglobin 8.8 g/dL (12.0-15.0); Immature Granulocyte Absolute 0.05 K/mm3 (0.00-0.031); Immature Granulocyte Percent A 0.5 % (0-0.5); Lymphocytes Absolute Auto 0.48 K/mm3 (0.9-3.2); Lymphocytes Percent Auto 5.1 % (18.3-44.2); Mean Corpuscular HGB Conc 30.9 g/dl (32-36); Mean Corpuscular Hemoglobin 28.6 pg (26-34); Mean Corpuscular Volume 92.5 fl (80-100); Mean Platelet Volume 10.4 fl (7.4-10.4); Monocytes Absolute Auto 0.4 K/mm3 (0.1-0.6); Monocytes Percent Auto 3.7 % (2.6-8.5); Neutrophils Absolute Auto 8.6 K/mm3 (1.3-6.7); Neutrophils Percent Auto 90.7 % (45.5-73.1); Platelet Count Result 246 k/mm3 (150-375); Red Blood Count 3.08 M/mm3 (4.2-5.4); White Blood Count 9.4 K/mm3 (4.5-10.0)
[2020-04-21 06:01] LABS: Anion Gap 9 mmol/L (8-16); Blood Urea Nitrogen 28 mg/dL (7-17); Calcium 8.5 mg/dL (8.4-10.2); Carbon Dioxide 31 mmol/L (22-30); Chloride 95 mmol/L (98-107); Estimated CRCL calculation 52 ml/min; Estimated Glomerular Filt Rate 55; Glucose 238 mg/dL (65-105); Magnesium 2.3 mg/dL (1.6-2.3); Potassium 3.8 mmol/L (3.4-5.0); Sodium 135 mmol/L (137-145)
[2020-04-21 07:03] LABS: Hemoglobin A1C 6.8 % (<5.7)
[2020-04-21] MEDS: NITROGLYCERIN SL 0.4 MG TABLET SUBLINGUAL ×3 (08:23→08:35)
--- NOTE | 2020-04-21 08:24 | ECG_ITS ---
Measurements Intervals [place] Rate: 64 P: 59 SD: 148 QRS: 12 QRSD: 90 T: 37 QT: 417 QTc: 433 Interpretive Statements SINUS RHYTHM EARLY PRECORDIAL R/S TRANSITION VOLTAGE CRITERIA FOR LVH BASELINE ARTIFACT- I, II, AVR, V1 BORDERLINE ECG Electronically Signed On 04-21-2020 9:07:17 CDT by Jaylan Becker D.O.
[2020-04-21] MEDS: MORPHINE SULFATE 2 MG/ML INJ 1 MG IV PUSH (08:59)
[2020-04-21] MEDS: FUROSEMIDE 40 MG TABLET 80 MG PO ×2 (09:03→17:57)
[2020-04-21] MEDS: METOPROLOL TARTRATE 50 MG TAB PO (09:04)
[2020-04-21] MEDS: amLODIPine BESYLATE 5 MG TABLET PO (09:04)
[2020-04-21] MEDS: ASPIRIN 81 MG ENTERIC TABLET PO (09:04)
[2020-04-21 09:34] LABS: Troponin I < 0.012 ng/mL (0.000-0.034)
[2020-04-21] MEDS: LOSARTAN POTASSIUM 50 MG TABLET PO (09:55)
[2020-04-21] MEDS: PANTOPRAZOLE 40 MG TABLET PO (09:55)
[2020-04-21] MEDS: PRAVASTATIN SODIUM 20 MG TABLET 40 MG PO (09:55)
[2020-04-21] MEDS: POTASSIUM CHLORIDE 10 MEQ TABLET.ER 20 MEQ PO ×2 (09:55→17:57)
[2020-04-21] MEDS: MAGNESIUM OXIDE 400 MG TABLET 800 MG PO (09:55)
[2020-04-21] MEDS: methylPREDNISolone SOD SUCC 125 MG VIAL 60 MG IV PUSH ×4 (09:56→20:22)
[2020-04-21] MEDS: guaiFENesin 12 HR 600 MG TABCR PO ×2 (09:58→20:22)
--- NOTE | 2020-04-21 11:11 | PM.IMPN ---
Progress Note: A&P Assessment and Plan (1) COPD (chronic obstructive pulmonary disease): Qualifiers: COPD type: unspecified COPD Qualified Code(s): J44.9 - Chronic obstructive pulmonary disease, unspecified Code(s): J44.9 - Chronic obstructive pulmonary disease, unspecified Status: Chronic Assessment and Plan: Seems to be quite advanced. She has been established with a wireworker at [place] and recently was scheduled to undergo pulmonary function testing, however she became too short of breath and proceeded to the emergency department instead of attending her appointment. She is on chronic 4 L O2 per nasal cannula at home. She is maintaining adequate oxygenation on 4 L here. She is short breath with minimal activity including rotating in bed, walking to the bathroom, or walking up 2 steps. Consult has been placed to pulmonology and recommendations are appreciated. Continue albuterol and ipratropium. Patient is on trelegy at home, however this is non formulary. Continue IV Solu-Medrol, Mucinex, and Levaquin as patient is reporting change in sputum color and has had green sputum production the past week. Supplemental O2 with goal saturation 90% or above. Patient and daughter request hospice consultation given severity of illness. They are meeting with [facility] hospice today. (2) Unstable angina: Code(s): I20.0 - Unstable angina Status: Acute Assessment and Plan: She had an episode of chest pain this morning while at rest described as midsternal chest pressure that radiated up toward her neck with diaphoresis. She denied any jaw pain, arm pain, or back pain. This pain was not relieved after 3 doses of nitro but pain completely resolved after 1 mg of morphine. Upon re-evaluation, pain was reproducible with palpation of anterior chest wall. She has a cardiac history of RCA stent placed in 2010 and she is followed by Dr. Mendez. Stat EKG performed did not reveal any ST changes or evidence of ischemia. Troponin was negative. I spoke with cardiology regarding this patient and no further evaluation was deemed to be necessary. Continue nitro or morphine as needed for pain. She is on adequate medical therapy including aspirin, statin, metoprolol, losartan, and prn nitro. (3) Obstructive sleep apnea: Code(s): G47.33 - Obstructive sleep apnea (adult) (pediatric) Status: Chronic Assessment and Plan: Likely contributing to her overall poor respiratory status. Continue CPAP titrated to home settings (4) HTN (hypertension): Qualifiers: Hypertension type: essential hypertension Qualified Code(s): I10 - Essential (primary) hypertension Code(s): I10 - Essential (primary) hypertension Status: Chronic Assessment and Plan: Blood pressures have been generally well controlled. Elevated today during episode of chest pain. Continue metoprolol and losartan. (5) Afib: Qualifiers: Atrial fibrillation type: unspecified Qualified Code(s): I48.91 - Unspecified atrial fibrillation Code(s): I48.91 - Unspecified atrial fibrillation Status: Chronic Assessment and Plan: Rate is controlled. Continue metoprolol and Xarelto (6) Peripheral edema: Code(s): R60.9 - Edema, unspecified Status: Acute Assessment and Plan: She has 1+ pitting pedal edema that she states is chronic. She has been compliant with her Lasix. She had attempted to use Arturo hose before but was unable to tolerate. She does not have a history of CHF and her BNP was very mildly elevated, not enough to suggest a CHF exacerbation. Venous Doppler performed to rule out DVT was negative. Echo performed 04/20 showed EF greater than 70% and there is grade I diastolic dysfunction. Continue home dose of Lasix. She is on a rather large dose of 80 mg b.i.d. Will monitor renal function and volume status. Gino
[2020-04-21 17:35] LABS: Glucose Point of Care 276 (65-105)
[2020-04-21] MEDS: INSULIN ASPART (*BKC) 100 UNITS/ML SUB-Q (17:54)
[2020-04-21] MEDS: METOPROLOL TARTRATE 25 MG TABLET 75 MG PO (17:57)
[2020-04-21] MEDS: RIVAROXABAN 15 MG TABLET PO (17:57)
[2020-04-21] MEDS: levoFLOXacin 250 MG/D5W 50 ML 250 MG/50 ML BAG 50 MG IVPB (20:23)
[2020-04-21 20:45] LABS: Glucose Point of Care 264 (65-105)
[2020-04-22 02:23] VITALS: PULSE 61; RESP 26; O2SAT 92
[2020-04-22] MEDS: traMADol HCL 50 MG TABLET PO (03:45)
[2020-04-22 05:30] VITALS: BP 177/94; PULSE 53; RESP 20; TEMP 35.9; O2SAT 94
[2020-04-22 05:56] LABS: Hemoglobin 9.6 g/dL (12.0-15.0); Mean Corpuscular Hemoglobin 29.2 pg (26-34); Mean Corpuscular Volume 94.2 fl (80-100); Mean Platelet Volume 10.5 fl (7.4-10.4); Platelet Count Result 271 k/mm3 (150-375); Red Blood Count 3.29 M/mm3 (4.2-5.4); White Blood Count 8.6 K/mm3 (4.5-10.0)
[2020-04-22] MEDS: rOPINIRole HCL 1 MG TABLET PO ×2 (05:59→13:01)
[2020-04-22 06:12] LABS: Anion Gap 7 mmol/L (8-16); Blood Urea Nitrogen 38 mg/dL (7-17); Calcium 8.9 mg/dL (8.4-10.2); Carbon Dioxide 36 mmol/L (22-30); Chloride 93 mmol/L (98-107); Estimated CRCL calculation 52 ml/min; Estimated Glomerular Filt Rate 55; Glucose 171 mg/dL (65-105); Sodium 136 mmol/L (137-145)
[2020-04-22 07:56] LABS: Glucose Point of Care 135 (65-105)
[2020-04-22] MEDS: methylPREDNISolone SOD SUCC 125 MG VIAL 60 MG IV PUSH (08:41)
[2020-04-22] MEDS: PANTOPRAZOLE 40 MG TABLET PO (08:42)
[2020-04-22] MEDS: PRAVASTATIN SODIUM 20 MG TABLET 40 MG PO (08:42)
[2020-04-22] MEDS: amLODIPine BESYLATE 5 MG TABLET PO (08:42)
[2020-04-22] MEDS: ASPIRIN 81 MG ENTERIC TABLET PO (08:42)
[2020-04-22] MEDS: POTASSIUM CHLORIDE 10 MEQ TABLET.ER 20 MEQ PO (08:42)
[2020-04-22] MEDS: FUROSEMIDE 40 MG TABLET 80 MG PO (08:42)
[2020-04-22 08:43] VITALS: PULSE 72
[2020-04-22] MEDS: LOSARTAN POTASSIUM 50 MG TABLET PO (08:43)
[2020-04-22] MEDS: METOPROLOL TARTRATE 50 MG TAB PO (08:43)
[2020-04-22] MEDS: guaiFENesin 12 HR 600 MG TABCR PO (08:44)
[2020-04-22] MEDS: MAGNESIUM OXIDE 400 MG TABLET 800 MG PO (08:44)
[2020-04-22 11:31] LABS: Glucose Point of Care 228 (65-105)
[2020-04-22] MEDS: INSULIN ASPART (*BKC) 100 UNITS/ML SUB-Q (11:32)
--- NOTE | 2020-04-22 13:35 | PM.DS ---
DS: Admitting Diagnosis Admitting Diagnosis Admitting Diagnosis: COPD exacerbation DS: Discharge Diagnosis Discharge Diagnosis (1) Encounter for hospice care: Code(s): Z51.5 - Encounter for palliative care Status: Acute Assessment and Plan: Patient reported chronic shortness of breath which was debilitating to her daily life and therefore requested Hospice consultation. Patient and daughter met with [facility] and opted to continue with home hospice care. (2) COPD (chronic obstructive pulmonary disease): Qualifiers: COPD type: unspecified COPD Qualified Code(s): J44.9 - Chronic obstructive pulmonary disease, unspecified Code(s): J44.9 - Chronic obstructive pulmonary disease, unspecified Status: Chronic Assessment and Plan: Seems to be quite advanced. 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 She is on chronic 4 L O2 per nasal cannula at home. She is short of breath with minimal activity including rotating in bed, walking to the bathroom, or walking up 2 steps. She was treated with IV solumedrol which was transitioned to PO prednisone taper and bronchodilators. She was treated with a course of Levaquin given reported increase in thick, green sputum production. Given the severity of her COPD, she expressed interest in meeting with hospice care. She was accepted to [facility]. (3) Unstable angina: Code(s): I20.0 - Unstable angina Status: Acute Assessment and Plan: She had an episode of chest pain on 04/21 while at rest described as midsternal chest pressure that radiated up toward her neck with diaphoresis. She denied any jaw pain, arm pain, or back pain. This pain was not relieved after 3 doses of nitro but pain completely resolved after 1 mg of morphine. Upon re-evaluation, pain was reproducible with palpation of anterior chest wall. She has a cardiac history of RCA stent placed in 2010 and she is followed by Dr. Mendez. Stat EKG performed did not reveal any ST changes or evidence of ischemia. Troponin was negative. I spoke with cardiology regarding this patient and no further evaluation was deemed to be necessary. She is on adequate medical therapy including aspirin, statin, metoprolol, losartan, and prn nitro. (4) Obstructive sleep apnea: Code(s): G47.33 - Obstructive sleep apnea (adult) (pediatric) Status: Chronic Assessment and Plan: Likely contributing to her overall poor respiratory status. Continue CPAP titrated to home settings (5) HTN (hypertension): Qualifiers: Hypertension type: essential hypertension Qualified Code(s): I10 - Essential (primary) hypertension Code(s): I10 - Essential (primary) hypertension Status: Chronic Assessment and Plan: Blood pressures were reviewed daily and were generally well controlled. Continue metoprolol and losartan. (6) Afib: Qualifiers: Atrial fibrillation type: unspecified Qualified Code(s): I48.91 - Unspecified atrial fibrillation Code(s): I48.91 - Unspecified atrial fibrillation Status: Chronic Assessment and Plan: Rate was controlled. Continue metoprolol and Xarelto. (7) Elevated fasting glucose: Code(s): R73.01 - Impaired fasting glucose Status: Acute Assessment and Plan: Patient has had elevated fasting glucose during her stay at 226 and 238. Random glucose at presentation was 311. She has no documented history of diabetes. A1c was 6.8. She was monitored with accuchecks and covered with SSI. No medications were initiated at this time as patient is proceeding with Hospice, will defer to [facility]. (8) Diastolic dysfunction: Code(s): I51.89 - Other ill-defined heart diseases Sta
[2020-04-22] MEDS: predniSONE 20 MG TABLET 40 MG PO (14:46)
== END 2020-04-22 16:00 | disposition hospice, home (50) | DRG 191 ==
LOC: ANHED 12:46 → ANH2MED 16:06
PROVIDERS: Nurse Practitioner; Physician Assistant; Admitting Provider Family Medicine; Emergency Provider Emergency Medicine; PCP Family Medicine; Visit Provider Family Medicine
DX: J44.1 Chronic obstructive pulmonary disease with (acute) exacerbation (principal); I20.0 Unstable angina; I48.91 Unspecified atrial fibrillation; E78.5 Hyperlipidemia, unspecified; I10 Essential (primary) hypertension; G47.33 Obstructive sleep apnea (adult) (pediatric); Z99.81 Dependence on supplemental oxygen; G25.81 Restless legs syndrome; R73.01 Impaired fasting glucose
CPT/HCPCS: 36415; 36600; 71045; 80048; 80053; 82375; 82728; 82805; 83036; 83050; 83735; 83880; 84443; 84484; 85025; 85027; 85610; 85730; 86140; 93005; 93306; 93970; 94640; 96365; 96366; 96375; 96376; 99285; A9270; G0378; J1815; J1956; J2270; J2930; J7512